=== PATIENT | male | born 1940 | race Caucasian/White ===

== ENCOUNTER 2017-01-07 12:30 | Day surgery (SDC) | payer MEDICARE, OTHER ==
[~2017-01-07] VITALS: Ht 170.2 cm; Wt 81.0 kg
--- NOTE | 2017-01-07 07:28 | PCM.HPANE ---
Patient Data Surgeon Admitting Provider: Attending Provider:George Henderson MD Primary Care Physician:Erick Lemus MD Other Provider: Reason for Visit Fecal Soiling Due To Fecal Incontinence Ht/WT & BMI Body Mass Index Allergies Coded Allergies: No Known Allergies (Verified , 01/07/17) Uncoded Allergies: No Known Allergies (Allergy, Severe, 11/01/05) Diabetes History Hx Diabetes?: No Medications Hypertension Medication: No Home Meds Incl Beta Lex: No Reported Medications Alfuzosin ER 10 Mg Tab.er.24h10 Mg PO DAILY 01/07/17 Magnesium Oxide (Magnesium)400 Mg Uctywl780 Mg PO DAILY 01/07/17 Ascorbate Calcium (Vitamin C)500 Mg Mwqmym325 Mg PO DAILY 01/07/17 Trazodone 100 Mg Lgnbye261 Mg PO HS Ref 0 01/06/17 Buprenorphine HCl/Naloxone HCl (Suboxone 2 mg-0.5 mg Sl Film)1 Each Film1 Each SL DAILY Ref 0 01/06/17 Pravastatin 20 Mg Wxofnf93 Mg PO DAILY Ref 0 01/06/17 Meloxicam 7.5 Mg Tablet7.5 Mg PO DAILY 30 Days Ref 0 01/06/17 Furosemide 40 Mg Yqhtna282 Mg PO DAILY 01/06/17 Multivits-Min/FA/Lycopene/Lut (Essential Man 50+ Tablet)1 Each Tablet1 Each PO DAILY 01/06/17 Suvorexant (Belsomra)20 Mg Nikand62 Mg PO HS 01/06/17 Aspirin 81 Mg Rlycfq97 Mg PO DAILY Ref 0 01/06/17 Discontinued Reported Medications Ramelteon (Rozerem)8 Mg Tablet8 Mg PO 01/06/17 Cholecalciferol (Vitamin D3) (Vitamin D3)2,000 Unit Capsule2,000 Unit PO DAILY 01/06/17 Psyllium Husk 1,000 Gm Powder0.52 G Po Tid 01/06/17 Oxycodone ER (Oxycontin)40 Mg Tab.er.12h40 Mg PO BID 01/06/17 Assawoman-3 Fatty Acids/Fish Oil (Ass[place]oman 3 1,000 mg Softgel)1 Each Capsule1 Each PO DAILY 01/06/17 Melatonin/Pyridoxine (Melatonin 3 mg Tablet)1 Each Tablet1 Each PO HS 01/06/17 Pregabalin (Lyrica)100 Mg Rcuukcc410 Mg PO TID 30 Days Ref 0 01/06/17 Doxepin 25 Mg Vkajtvc19 Mg PO HS 30 Days 01/06/17 Clonidine 0.1 Mg Tablet0.1 Mg PO HS Ref 0 01/06/17 Zolpidem (Ambien)10 Mg Nqkcak70 Mg PO HS PRN For Insomnia Ref 0 01/06/17 Alprazolam 0.25 Mg Tablet0.25 Mg PO HS PRN For Anxiety Ref 0 01/06/17 Buprenorphine HCl/Naloxone HCl (Suboxone 2 mg-0.5 mg Sl Film)1 Each Film1 Each SL DAILY Ref 0 08/18/14 Mirtazapine (Remeron)15 Mg Tablet8 Mg PO HS Ref 0 08/18/14 Trazodone 100 Mg Kayupu459 Mg PO HS Ref 0 08/18/14 Multivitamin (Daily Multiple Vitamin)1 Each Tablet1 Each PO DAILY 08/18/14 Aspirin (Aspir 81)81 Mg Tablet.dr81 Mg PO DAILY Ref 0 08/18/14 Alprazolam 2 Mg Tablet1.5 Mg PO HS PRN For Anxiety Ref 0 08/18/14 Pravastatin 20 Mg Qgkfbj55 Mg PO DAILY Ref 0 08/18/14 History Hx of Heart Problems?: No Hx of Respiratory Problem?: No Hx Musculoskeletal Problems?: Yes Stop/Bang Risk Assessment Category Category 1A: Patient has history of documented sleep apnea, and HAS NOT received any narcotic, sedative or anesthesia administration during this stay. Category 1B: Patient has history of documented sleep apnea, and HAS received any narcotic , sedative or anesthesia administration during this stay Category 2: Patient has SUSPECTED Obstructive Sleep Apnea, and HAS received any narcotic , sedative or anesthesia administration during this stay. Category 3: Patient has SUSPECTED Obstructive Sleep Apnea and HAS NOT received narcotic, sedative or anesthesia administration during this stay. Category 4: Outpatient in Procedural Areas with known sleep apnea or who screen positive for High Risk via the STOP/BANG questionnaire. Exam Exam General Appearance: Alert, Oriented X3, Cooperative, No Acute Distress HEENT/AIRWAY: MP 2 Lungs: Normal Air Movement Heart: Exam Unremarkable Plan Impression Patient chart reviewed, patient interviewed and anesthestic plan with risks, benefits, and alternatives discussed, and informed consent obtained. ASA Physical Status: ASA2 Mod Systemic Disease Anesthetic Plan: MAC Bene/Risks/Altern/Consents: Yes HP Complete Prior to Induction: Yes Dante Dougherty MD Jan 07, 2017 07:28
[~2017-01-07 12:30] MED LIST: ALPR0.254 PO; ASPI-973 PO; BUPR1FIL SL; CHOL200047 PO; CLON0.1T PO; DXPN25C PO; FURO40TA4 PO; MELA1TAB11 PO; MELO-259 PO; OMEG1CAP56 PO; OXYC40TA46 PO; PRAV20TA2 PO; PREG100C PO; PSYL1000 PO; RAME8TAB10 PO; SUVO20TA PO; TRAZ-118 PO; ZLP10T PO; [UNRECOGNIZED DRUG - OTHER] PO
[2017-01-07] MEDS ORDERED: Propofol 10,000 mCg/mL 20 mL Inj ONE (12:31)
[2017-01-07] MEDS ORDERED: fentaNYL-PF 50 mCg/mL 2 mL Inj ONE (12:31)
[2017-01-07] MEDS ORDERED: Glycopyrrolate 0.2 MG/ML 1mL Inj ONE (12:31)
[2017-01-07 13:20] VITALS: BP 145/66; PULSE 59; RESP 16; O2SAT 100
[2017-01-07] MEDS ORDERED: ASCO-294 PO (13:20)
[2017-01-07] MEDS ORDERED: ALFU10TA11 PO (13:20)
[2017-01-07] MEDS ORDERED: MAGN400T39 PO (13:20)
[2017-01-07] MEDS: Lactated Ringer's 1,000 ML IV ONE ×2 (14:34→14:57)
--- NOTE | 2017-01-07 15:01 | PCM.ENDCOL ---
Colonoscopy Date of Service: Jan 07, 2017 Physician George Henderson MD Pre Procedure Diagnosis: Fecal incontinence screening Post Procedure Dx & Findings: Polyp hemorrhoids diverticuli Procedure Colonoscopy PROCEDURE IN DETAIL: Prep adequate Withdrawal time 11 minutes After unremarkable rectal examination the Olympus video colonoscope was inserted patient's anal canal and was advanced to cecum. Landmarks were identified including the ileocecal valve and appendiceal orifice. Scope further events to terminal ileum. We advanced 5 cm. Terminal ileum showed a normal villous structures without any mass ulcer erosion. Scope was withdrawn systematically. Visualized colonic mucosa showed healthy shiny mucosa with normal healthy-appearing vasculature. In the ascending colon there were two 2 mm polyps which were removed completely using cold snare. In the transverse colon there was a 2 mm polyp which was removed completely using cold snare. In the transverse colon there was a 1 mm polyp which was removed completely using cold forceps. From the descending colon to the distal sigmoid colon were a few isolated medium size diverticula to the sigmoid colon. In the rectum retroflexion was done which showed hemorrhoids. Anal canal was inspected carefully on the way out and hemorrhoids noted. Rectal exam revealed almost no resting sphincter tone. Impression Polyps 4 status post complete removal Diverticula No resting sphincter tone - most likely the cause of the fecal incontinence Hemorrhoids Recommendation Repeat colonoscopy 3 years Diverticular diet Awaiting Anorectal manometry Presedation Assessment Risks and Benefits Informed consent was obtained from the patient after all risks and benefits including but not limited to drug reaction, infection, pain, bleeding, perforation, as well as alternatives were discussed. Patient monitoring Continuous pulse oximetry, cardiac monitoring, blood pressure monitoring, IV access, and oxygen at 2L per nasal cannula. Complications There were no periprocedural complications identified. Post Procedure Plan Post Procedure Recommendations 1. Restrict activities today. 2. Resume normal activities in the morning. 3. Resume medications. 4. Patient informed of normal post procedure side effects as bloating, drowsiness, blood streaking in the stool. 5. average risk CRCS. If colon polyps come back as: -Hyperplastic- can repeat colonoscopy in 10 years -Tubular adenoma- repeat colonoscopy in 5 years -Tubulovillous/villous adenoma- repeat colonoscopy in 3 years -If any dysplasia- return to clinic as soon as possible 6. Please don't hesitate to call me with any questions. George Henderson MD Jan 07, 2017 15:01
[2017-01-07 15:02] VITALS: BP 103/60; PULSE 55; RESP 17; O2SAT 94
[2017-01-07 15:12] VITALS: BP 123/76; PULSE 63; RESP 17; O2SAT 94
[2017-01-07 15:22] VITALS: BP 112/67; PULSE 82; RESP 17; O2SAT 99
--- NOTE | 2017-01-07 15:29 | PCM.ANEP1 ---
Post Anesthesia Phase 1 PACU Phase 1 Assessment Date of Service: Jan 07, 2017 Vital Signs Vital Signs Date Time Temp Pulse Resp B/P Pulse Ox O2 Delivery O2 Flow Rate FiO2 01/07/17 15:02 55 17 103/60 94 Room Air 01/07/17 13:20 59 16 145/66 100 Room Air Anesthetic Administered: MAC Level of Alertness: Awake, talking THOMAS's with Equal Strength: Yes Pain: No Nausea or Vomiting: No Oxygen Delivery: Room Air Lungs: Normal Air Movement Dante Dougherty MD Jan 07, 2017 15:29
--- NOTE | 2017-01-07 15:29 | PCM.ANEP2 ---
Post Anesthesia Evaluation ASA/CMS Post Anesthesia VS in Patient's Normal Range?: Yes Resp Stable; Airway Patent?: Yes CV Function & Hydration Stable: Yes Mental Status Recovered?: Yes Pain control Satisfactory?: Yes N/V Control Satisfactory?: Yes Dante Dougherty MD Jan 07, 2017 15:29
--- NOTE | 2017-01-09 14:07 | PATH ---
SURGICAL PATHOLOGY Attending Physician:George Henderson M.D. CASE STATUS: Signed Out PATIENT NAME: ESTRADA JI PID: [id number] : 1940 DATE COLLECTED:01/07/2017 00:00 SPECIMEN: 1: Colon, Biopsy 2: Colon, Biopsy CLINICAL HISTORY: 1). ASCENDING COLON POLYP X2 2). TRANSVERSE COLON POLYP X2 FINAL DIAGNOSIS: 1. Ascending Colon Polyps: Tubular adenomas (2). 2. Transverse Colon Polyps: Tubular adenomas (2). ICD10: D12.6 GROSS DESCRIPTION: The specimen is received in two formalin filled containers labeled with the patient's name. 1). The specimen is sublabeled "ascending colon polyps" and consists of 2 portions of tissue which aggregate to 0.3 x 0.3 x 0.2 CM. The specimen is entirely submitted in cassette 1A. 2). The specimen is sublabeled "transverse colon polyps" and consists of 2 portions of tissue which aggregate to 0.3 x 0.3 x 0.3 CM. The specimen is entirely submitted in cassette 2A. 01/08/2017 [facility] ICD-9 CODES: CPT CODES: 1: 98542 2: 20310 Electronically Signed Out Dylan Winslow MD [facility] [place] [address] Technical component performed at [facility], [address] [place] [address] [address], [address]
== END 2017-01-07 23:59 | disposition home or self-care (01) ==
LOC: END 12:30
PROVIDERS: ATTEND Internal Medicine
DX: D12.2 Benign neoplasm of ascending colon (principal); D12.3 Benign neoplasm of transverse colon; K64.8 Other hemorrhoids; K57.30 Diverticulosis of large intestine without perforation or abscess without bleeding; R15.9 Full incontinence of feces; R06.00 Dyspnea, unspecified; Z92.21 Personal history of antineoplastic chemotherapy; Z85.71 Personal history of Hodgkin lymphoma; Z80.0 Family history of malignant neoplasm of digestive organs; Z79.82 Long term (current) use of aspirin
CPT/HCPCS: 45380; 45385; 88305; J2250; J3010; J7120